=== PATIENT | female | born 1990 | race Hispanic/Latino ===

== ENCOUNTER 2025-05-10 17:41 | Emergency (ER) | payer BC ==
[~2025-05-10] VITALS: Ht 157.5 cm; Wt 72.6 kg
--- NOTE | 2025-05-10 18:07 | ERN ---
ED Note History of Present Illness Stated Complaint: ABSCESS TO PRIVATE AREA Chief Complaint: Abscess Time Seen by MD: 17:45 Time Seen by Midlevel: 17:46 Dictation: 34-year-old female presents to the emergency department due to reported having a small lump on the right lateral portion of her vaginal area. The patient states that with this approximately 2.5 days ago. Patient states that there is no fever associated with this. However, she describes having some mild discomfort to the area. At this time, her level of discomfort is rated as a 2/10. There is no drainage associated with this. Currently, she denies having any fever or urinary symptoms. Upon initial evaluation, the patient presents in no acute distress. Allergies: Coded Allergies: No Known Allergies (Unverified Allergy, Unknown, 05/10/25) Emergency Care CARE COORDINATOR: None Home Meds Active Scripts Sulfamethoxazole/Trimethoprim (Bactrim Ds Tablet) 800 Mg-160 Mg Tablet, 1 TAB PO BID for 7 Days, #14 TAB 0 Refills Prov:FLORIAN SHINE 05/10/25 Past Medical History Past Medical History: No Pertinent History Surgical History: Other Surgical History Other: RT KNEE PSYCH History: no pertinent psych hx History: Not Applicable RN Note Reviewed/Agreed w/PFSH: Yes Review of System Dictation Skin: Vaginal area of discomfort Initial Vital Sign VS Vital Signs Date Time Temp Pulse Resp B/P (MAP) Pulse Ox O2 Delivery O2 Flow Rate FiO2 05/10/25 17:42 97.9 82 18 121/68 98 Room Air 05/10/25 17:53 0 21 Physical Exam Dictation General: awake, alert, NAD Head/Face: Normocephalic, atraumatic Eyes: PERRL, EOMI ENT: Oral mucosa moist Neck: Trachea midline, supple Cardiovascular: RRR, no edema Respiratory: Symmetrical, non-labored Abdomen: Soft, non-tender, non-distended, no guarding. : Mild area of swelling and tenderness to the right labia majora has noted per inspection along with instrument assembly supervisor by a female nurse aide with the presentation of her male partner. Skin: Warm, dry, good turgor, no rash MS/Extremity: Pulses equal, no cyanosis, neurovascular intact, FROM Neuro: COAx4, GCS 15, steady gait, Results (Laboratory/Radiology) Laboratory/Radiology Laboratory Tests Test 05/10/25 18:00 Urine HCG, Qualitative NEGATIVE (NEGATIVE) Labs Reviewed?: Yes ED Course ED Course Orders Procedure Category Date Status Time ,Urine Test LAB 05/10/25 Complete 17:52 Sulfamethox-Tmp Ds PHA 05/10/25 Complete 800/160 Tab (Bactrim 18:00 Current Medications Medications (Trade) Dose Ordered Sig/Prashant Route PRN Reason Start Time Stop Time Status Last Admin Dose Admin Trimethoprim/ Sulfamethoxazole (BactRIM DS) 1 tab ONCE ONCE PO 05/10/25 18:00 05/10/25 18:01 DC 05/10/25 18:25 Vital Signs Date Time Temp Pulse Resp B/P (MAP) Pulse Ox O2 Delivery O2 Flow Rate FiO2 05/10/25 17:53 97.5 82 18 121/68 98 Room Air* 0 21 05/10/25 17:42 97.9 82 18 121/68 98 Room Air Medical Decision Making MDM MDM: Differential diagnosis: Abscess, cellulitis, but I told him cyst. Rationale: Tests considered and ordered secondary to shared decision making include: Previous outside records reviewed: Old ER visits. Risk of complication and/or morbidity or mortality of patient management: None Medications-Per medication reconciliation Need for hospitalization: Patient does not meet criteria for hospitalization. Need for emergency major/minor surgery: No There are no social concerns with this patient. Prescription drug management Prescriptions will include symptomatic care Patient's prior external medical records from other ER visits were reviewed by me as indicated. Prior testing and results from previous visits were reviewed. Prior tests were taken into account with medical decision making and resource utilization, independent historian/historians were used to obtain complete medical history. I independently interpreted the test that were performed, results were reviewed by me and considered findings on radiology if ordered. Medical management and examination interpretation discussions were had by me with other qualified healthcare professionals as indicated for the patient's care. DX & DISP Disposition: Discharge Departure Impression: Primary Impression: Cellulitis of pelvis, acute Condition: Stable Scripts Sulfamethoxazole/Trimethoprim (Bactrim Ds Tablet) 800 Mg-160 Mg Tablet 1 TAB PO BID for 7 Days, #14 TAB 0 Refills Prov: FLORIAN SHINE 05/10/25 Referrals: SELF,REFERRAL (PCP) Time of Disposition: 19:04 FLORIAN SHINE May 10, 2025 18:07
[2025-05-10] MEDS ORDERED: SULF1TAB42 PO (19:04)
[2025-05-10 19:11] VITALS: BP 124/62; PULSE 78; RESP 18; TEMP 97.5; O2SAT 98
== END 2025-05-10 19:15 | disposition home or self-care (01) ==
LOC: EDH 17:41
DX: N73.2 Unspecified parametritis and pelvic cellulitis (principal); Z79.899 Other long term (current) drug therapy
CPT/HCPCS: 81025; 99283